=== PATIENT | female | born 1975 | race Caucasian/White ===

== ENCOUNTER 2017-07-26 17:56 | Emergency (ER) | payer MEDICARE, OTHER ==
[~2017-07-26] VITALS: Ht 157.5 cm; Wt 90.7 kg
--- NOTE | 2017-07-26 18:05 | NUR ---
[id number] FROM HOME: HEADACHE, NAUSEA, VOMITING, FLU SYMPTOMS. a/ox 4. BREATHING EVEN AND UNLABORED. NO SOB. VITALS STABLE. SAFETY AND COMFORT MEASURES IN PLACE. AWAITING MD ORDERS.
[2017-07-26] MEDS ORDERED: LORAZEPAM INJ 2 MG/ML VIAL IV ONE (19:00)
[2017-07-26] MEDS ORDERED: IV NS 0.9% 1,000 ML BAG IV ONE (19:00)
[2017-07-26] MEDS ORDERED: ONDANSETRON HCL/PF 4 MG/2 ML VIAL IVP ONE (19:00)
[2017-07-26] MEDS ORDERED: MORPHINE SULFATE INJ 2 MG/ML DISP.SYRIN IV ONE (19:00)
--- NOTE | 2017-07-26 19:00 | NUR ---
REPORT RECEIVED FROM CHANDLER ALMANZA FOR [facility].
--- NOTE | 2017-07-26 19:05 | NUR ---
18G IV TO L AC X 1 ATTEMPT USING ASEPTIC TECH, BLOOD HANDED OVER TO THE LAB AT BEDSIDE.
[2017-07-26 19:12] LABS: BASOPHILS # (AUTO) 0.3 /CMM (0.0-0.2); BASOPHILS % (AUTO) 2.4 % (0.0-2.0); EOSINOPHILS # (AUTO) 0.1 /CMM (0.0-0.7); EOSINOPHILS % (AUTO) 0.6 % (0.0-6.0); HEMATOCRIT 39 % (33-45); LYMPHOCYTES # (AUTO) 1.8 /CMM (0.8-4.8); LYMPHOCYTES % (AUTO) 12.5 % (20.0-44.0); MEAN CORPUSCULAR HEMOGLOBIN 27 PG (26.0-33.0); MEAN CORPUSCULAR HGB CONC 34 g/dl (31.0-36.0); MEAN CORPUSCULAR VOLUME 79 fL (82-100); MONOCYTES # (AUTO) 0.7 /CMM (0.1-1.30); MONOCYTES % (AUTO) 4.8 % (2.0-12.0); NEUTROPHILS # (AUTO) 11.2 /CMM (1.8-8.9); NEUTROPHILS % (AUTO) 79.7 % (43.0-81.0); PLATELET COUNT (AUTO) 361 /CMM (150-450); RDW COEFFICIENT OF VARIATION 17.5 (11.5-15.0); RED BLOOD CELL COUNT(AUTO) 4.91 MIL/uL (4.0-5.2); WHITE BLOOD COUNT (AUTO) 14.1 K/uL (4.3-11.0)
[2017-07-26] MEDS ORDERED: ONDANSETRON HCL/PF 4 MG/2 ML VIAL ONE (19:12)
[2017-07-26] MEDS ORDERED: MORPHINE SULFATE INJ 4 MG/ML DISP.SYRIN ONE (19:12)
[2017-07-26] MEDS ORDERED: LORAZEPAM INJ 2 MG/ML VIAL ONE (19:13)
[2017-07-26 19:22] LABS: CREATININE 0.7 mg/dL (0.6-1.3); POTASSIUM 3.5 mmol/L (3.5-5.1)
[2017-07-26 19:25] LABS: INR 0.92 (0.87-1.13); PROTHROMBIN TIME 9.6 SECS (9.5-12.7)
[2017-07-26 19:28] LABS: ALBUMIN 3.7 g/dL (3.4-5.0); BILIRUBIN,TOTAL 0.3 mg/dL (0.2-1.0); TOTAL PROTEIN, SERUM 7.6 g/dL (6.4-8.2)
[2017-07-26 20:21] LABS: APPEARANCE,URINE Clear (CLEAR); BILIRUBIN,URINE SMALL (NEGATIVE); BLOOD, URINE Negative Ery/uL (NEGATIVE); COLOR,URINE Yellow (YELLOW); KETONES,URINE 15 (NEGATIVE); LEUKOCYTE ESTERASE ,URINE Trace (NEGATIVE); NITRITE, URINE Negative (NEGATIVE); PH,URINE 6.5 (5.0-8.0); PROTEIN,URINE 100 mg/dl (NEGATIVE); UGLUCOSE 250 MG/DL mg/dL (NEGATIVE); UROBILINOGEN,URINE 0.2 EU/dL (0.2)
[2017-07-26] MEDS ORDERED: AMLODIPINE BESYLATE 5 MG TABLET PO ONE (20:30)
--- NOTE | 2017-07-26 20:30 | NUR ---
PT RESTING QUIETLY, VSS. P AROUSES TO VOICE, STATES "FEELING BETTER".
[2017-07-26 20:34] LABS: BACTERIA,URINE Moderate /HPF (None Seen); RBC,URINE 0-2 /HPF (0-2); SQUAMOUS EPITHELIAL CELL,UR Moderate /HPF (None Seen)
[2017-07-26] MEDS ORDERED: AMLODIPINE BESYLATE 5 MG TABLET ONE (21:17)
--- NOTE | 2017-07-26 21:24 | NUR ---
PT B/P 162/102. MADE AWARE, NEW ORDERS RECEIVED.
--- NOTE | 2017-07-26 22:05 | NUR ---
IV removed. Catheter intact and site benign. Pressure and 4x4 applied to site. No bleeding noted. Patient discharged with friend to home in stable condition. Written and verbal after care instructions given, instructed not to drive. Patient verbalizes understanding of instruction. Patient ambulatory with a steady gait.
[2017-07-26 22:06] VITALS: BP 135/97
== END 2017-07-26 22:07 | disposition home or self-care (01) ==
LOC: ER 18:01
DX: R10.84 Generalized abdominal pain (principal); R51 Headache; F41.9 Anxiety disorder, unspecified; R82.71 Bacteriuria; K21.9 Gastro-esophageal reflux disease without esophagitis; E11.9 Type 2 diabetes mellitus without complications; I10 Essential (primary) hypertension
CPT/HCPCS: 36415; 80048; 80076; 81001; 82962; 83690; 84703; 85025; 85730; 87086; 96361; 96374; 96375; 99284; A4606; J2060; J2270; J2405; J7030; 81000-TC; Z7610

== ENCOUNTER 2017-07-29 22:00 | Emergency (ER) | payer MEDICARE, OTHER ==
[~2017-07-29] VITALS: Ht 165.1 cm; Wt 81.6 kg
--- NOTE | 2017-07-29 22:10 | NUR ---
PT BIB TO ER BED . C/O DIFFUSE ABDOMINAL PAIN W NAUSEA AND VOMITING SINCE FRIDAY. 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 PLACED ON MONITOR. AWAITING MD MCELROY.
--- NOTE | 2017-07-29 22:12 | NUR ---
DR JONES AT BEDSIDE FOR EVAL.
--- NOTE | 2017-07-29 22:14 | NUR ---
IV LINE STARTED BLOOD DRAWN AND SENT TO LAB.
--- NOTE | 2017-07-29 22:24 | NUR ---
RADIOLOGY AT BEDSIDE FOR CHEST XRAY.
[2017-07-29] MEDS ORDERED: ONDANSETRON HCL/PF 4 MG/2 ML VIAL ONE (22:27)
[2017-07-29] MEDS ORDERED: LORAZEPAM INJ 2 MG/ML VIAL ONE (22:28)
[2017-07-29] MEDS: IV NS 0.9% 1,000 ML BAG IV ONE (22:30)
[2017-07-29] MEDS: ONDANSETRON HCL/PF 4 MG/2 ML VIAL IVP ONE (22:31)
[2017-07-29] MEDS: LORAZEPAM INJ 2 MG/ML VIAL IV ONE (22:34)
[2017-07-29 22:49] LABS: BASOPHILS % (AUTO) 0.3 % (0.0-2.0); EOSINOPHILS # (AUTO) 0.2 /CMM (0.0-0.7); EOSINOPHILS % (AUTO) 2.1 % (0.0-6.0); HEMATOCRIT 39 % (33-45); HEMOGLOBIN 12.8 g/dL (11.5-14.8); LYMPHOCYTES # (AUTO) 1.9 /CMM (0.8-4.8); LYMPHOCYTES % (AUTO) 16.7 % (20.0-44.0); MEAN CORPUSCULAR HEMOGLOBIN 26 PG (26.0-33.0); MEAN CORPUSCULAR HGB CONC 32 g/dl (31.0-36.0); MEAN CORPUSCULAR VOLUME 81 fL (82-100); MONOCYTES # (AUTO) 0.9 /CMM (0.1-1.30); MONOCYTES % (AUTO) 7.7 % (2.0-12.0); NEUTROPHILS # (AUTO) 8.3 /CMM (1.8-8.9); NEUTROPHILS % (AUTO) 73.2 % (43.0-81.0); PLATELET COUNT (AUTO) 353 /CMM (150-450); RDW COEFFICIENT OF VARIATION 18.7 (11.5-15.0); RED BLOOD CELL COUNT(AUTO) 4.85 MIL/uL (4.0-5.2); WHITE BLOOD COUNT (AUTO) 11.3 K/uL (4.3-11.0)
[2017-07-29 23:11] LABS: ALANINE AMINOTRANSFERASE 82 U/L (12-78); ALBUMIN 3.8 g/dL (3.4-5.0); ALCOHOL, BLOOD < 3 mg/dL (0-0); ALKALINE PHOSPHATASE 88 U/L (46-116); ASPARTATE AMINOTRANSFERASE 35 U/L (15-37); BILIRUBIN,DIRECT 0.1 mg/dL (0.0-0.2); BILIRUBIN,TOTAL 0.3 mg/dL (0.2-1.0); CALCIUM, SERUM 9.2 mg/dL (8.5-10.1); CARBON DIOXIDE 30 mmol/L (21-32); CHLORIDE 105 mmol/L (98-107); CREATININE 0.8 mg/dL (0.6-1.3); GLUCOSE 144 mg/dL (74-106); POTASSIUM 3.7 mmol/L (3.5-5.1); SODIUM SERUM 141 mmol/L (136-145); TOTAL PROTEIN, SERUM 7.7 g/dL (6.4-8.2); UREA NITROGEN, BLOOD 5 mg/dL (7-18)
[2017-07-29 23:12] LABS: ACETAMINOPHEN 0 ug/ml (10-30); SALICYLATE 1.3 mg/dL (2.8-20.0)
--- NOTE | 2017-07-29 23:38 | NUR ---
Patient discharged to home in stable condition. Written and verbal after care instructions given. Patient verbalizes understanding of instruction.IV removed. Catheter intact and site benign. Pressure and 4x4 applied to site. No bleeding noted.
[2017-07-29 23:39] VITALS: BP 142/87
== END 2017-07-29 23:40 | disposition home or self-care (01) ==
LOC: ER 22:05
DX: F41.9 Anxiety disorder, unspecified (principal); E11.9 Type 2 diabetes mellitus without complications; K21.9 Gastro-esophageal reflux disease without esophagitis; Z85.841 Personal history of malignant neoplasm of brain
CPT/HCPCS: 36415; 71010; 80048; 80076; 80329; 85025; 93005; 96374; 96375; 99285; A4606; G0480 ×2; J2060; J2405; J7030; Z7610

== ENCOUNTER 2018-04-28 01:26 | Emergency (ER) | payer MEDICARE, OTHER ==
[~2018-04-28] VITALS: Ht 165.1 cm; Wt 81.6 kg
--- NOTE | 2018-04-28 01:38 | NUR ---
PT BBRA FROM HOME C/C LOWER BILATERAL ABD/PELVIC PAIN NON RADIATING X "FEW DAYS" W/ +N/V. -DYSURIA. PT NOTED TO BE ANXIOUS AND CRYING D/T PAIN. PT IS AAOX4. SKIN WARM AND DRY. NO S/S OF ACUTE DISTRESS NOTED. RR EVEN AND UNLABORED. PT PLACED ON MONITOR AND POX. PT SAFETY AND COMFORT MEASURES IN PLACE. AWAITING MD FOR EVAL.
[2018-04-28] MEDS ORDERED: ONDANSETRON HCL/PF 4 MG/2 ML VIAL ONE (01:40)
[2018-04-28] MEDS ORDERED: MORPHINE SULFATE INJ 4 MG/ML DISP.SYRIN ONE (01:40)
[2018-04-28 01:53] LABS: BASOPHILS # (AUTO) 0.3 /CMM (0.0-0.2); EOSINOPHILS % (AUTO) 4.4 % (0.0-6.0); HEMATOCRIT 40 % (33-45); LYMPHOCYTES # (AUTO) 3.5 /CMM (0.8-4.8); LYMPHOCYTES % (AUTO) 20.6 % (20.0-44.0); MEAN CORPUSCULAR HGB CONC 35 g/dl (31.0-36.0); MEAN CORPUSCULAR VOLUME 85 fL (82-100); MONOCYTES # (AUTO) 0.9 /CMM (0.1-1.30); MONOCYTES % (AUTO) 5.5 % (2.0-12.0); NEUTROPHILS # (AUTO) 11.5 /CMM (1.8-8.9); NEUTROPHILS % (AUTO) 67.5 % (43.0-81.0); PLATELET COUNT (AUTO) 230 /CMM (150-450); RDW COEFFICIENT OF VARIATION 16.2 (11.5-15.0); RED BLOOD CELL COUNT(AUTO) 4.73 MIL/uL (4.0-5.2); WHITE BLOOD COUNT (AUTO) 16.9 K/uL (4.3-11.0)
[2018-04-28] MEDS ORDERED: IV NS 0.9% 1,000 ML BAG IV ONE (02:00)
[2018-04-28] MEDS ORDERED: ONDANSETRON HCL/PF 4 MG/2 ML VIAL IVP ONE (02:00)
[2018-04-28] MEDS ORDERED: LORAZEPAM INJ 2 MG/ML VIAL IV ONE (02:00)
[2018-04-28] MEDS ORDERED: MORPHINE SULFATE INJ 2 MG/ML DISP.SYRIN IV ONE (02:00)
[2018-04-28] MEDS ORDERED: LORAZEPAM INJ 2 MG/ML VIAL ONE (02:07)
[2018-04-28 02:08] LABS: CALCIUM, SERUM 9.1 mg/dL (8.5-10.1); CREATININE 0.8 mg/dL (0.6-1.3); POTASSIUM 3.4 mmol/L (3.5-5.1)
[2018-04-28 02:13] LABS: ALBUMIN 3.8 g/dL (3.4-5.0); BILIRUBIN,TOTAL 0.2 mg/dL (0.2-1.0)
[2018-04-28 02:14] LABS: APPEARANCE,URINE SL CLOUDY (CLEAR); BILIRUBIN,URINE NEGATIVE (NEGATIVE); BLOOD, URINE NEGATIVE Ery/uL (NEGATIVE); COLOR,URINE YELLOW (YELLOW); KETONES,URINE NEGATIVE (NEGATIVE); LEUKOCYTE ESTERASE ,URINE 1+ (NEGATIVE); NITRITE, URINE NEGATIVE (NEGATIVE); PROTEIN,URINE TRACE mg/dl (NEGATIVE); UGLUCOSE NEGATIVE (NEGATIVE); UROBILINOGEN,URINE 0.2 EU/dL (0.2)
[2018-04-28] MEDS ORDERED: CT SWABBABLE VALVE TRANS SET 1 EA INFUS.SET MC ONE (02:17)
[2018-04-28] MEDS ORDERED: IV NS 0.9% 250 ML IV ONE (02:17)
[2018-04-28] MEDS ORDERED: IOHEXOL-300 100 ML VIAL IV ONE (02:17)
[2018-04-28 02:18] LABS: RBC,URINE 0-2 /HPF (0-2)
[2018-04-28 02:19] LABS: BACTERIA,URINE Moderate /HPF (None Seen); SQUAMOUS EPITHELIAL CELL,UR Moderate /HPF (None Seen)
[2018-04-28] MEDS ORDERED: CIPROFLOXACIN HCL 500 MG TABLET ONE (03:53)
[2018-04-28] MEDS ORDERED: CIPROFLOXACIN HCL 250 MG TABLET PO ONE (04:00)
--- NOTE | 2018-04-28 04:07 | NUR ---
Patient discharged to home in stable condition. Written and verbal after care instructions given. Patient verbalizes understanding of instruction.IV removed. Catheter intact and site benign. Pressure and 4x4 applied to site. No bleeding noted. NO S/S OF DISTRESS NOTED UPON DISCHARGE
[2018-04-28 04:10] VITALS: BP 133/76
== END 2018-04-28 04:11 | disposition home or self-care (01) ==
LOC: ER 01:28
DX: N39.0 Urinary tract infection, site not specified (principal); R10.84 Generalized abdominal pain; K21.9 Gastro-esophageal reflux disease without esophagitis; E11.9 Type 2 diabetes mellitus without complications; F41.9 Anxiety disorder, unspecified; Z85.841 Personal history of malignant neoplasm of brain
CPT/HCPCS: 36415; 74177; 80048; 80076; 81001; 83690; 85025; 87086; 96374 ×2; 96375; 99285; A4606; J2060; J2270; J2405; J7030; J7050; Q9967; 81000-TC; Z7610